=== PATIENT | male | born 1945 | race African-American/Black ===

== ENCOUNTER 2017-02-20 23:59 | Emergency (ER) | payer MEDICARE ==
[~2017-02-20 23:59] MED LIST: ASAB PO; C25 PO; CAT2 PO; COUMADIN10 MG PO; COZAAR100 MG PO; GLUCPH PO; HEART MEDICATION; L40 PO; LEVAQUIN750 MG PO; LISINOPRIL40 MG PO; LOP25 PO; NORV10 PO; NXL3 PO; POTASSIUM CHLORIDE; SORINE80 MG PO
== END 2017-02-21 00:01 | disposition home or self-care (01) ==
LOC: ER 23:59
DX: M79.81 Nontraumatic hematoma of soft tissue (principal); I10 Essential (primary) hypertension; Z95.5 Presence of coronary angioplasty implant and graft; E11.9 Type 2 diabetes mellitus without complications; Z85.038 Personal history of other malignant neoplasm of large intestine; Z79.01 Long term (current) use of anticoagulants; Z79.82 Long term (current) use of aspirin; Z79.899 Other long term (current) drug therapy
CPT/HCPCS: 99283